=== PATIENT | female | born 1990 | race Caucasian/White ===

== ENCOUNTER → 2017-07-13 | Outpatient (CLI) | payer BC ==
[2017-07-14 08:13] LABS: MUMPS IGG AB <9.0 AU/mL (Immune >10.9); RUBELLA IGG AB 1.87 index (Immune >0.99)
== END ==
LOC: OD 12:27
PROVIDERS: ATTEND Family Medicine Geriatric Medicine
DX: Z01.84 Encounter for antibody response examination (principal)
CPT/HCPCS: 36415; 86735; 86762; 86765